=== PATIENT | male | born 1980 | race Caucasian/White ===

== ENCOUNTER → 2017-06-26 | Outpatient (REF) | payer OTHER ==
[2017-06-26 16:02] LABS: PLATELET COUNT, AUTOMATED 269 K/uL (150-450)
== END ==
PROVIDERS: ATTEND Physician Assistant Medical
DX: R11.0 Nausea (principal); R11.10 Vomiting, unspecified
CPT/HCPCS: 82040; 82247; 82310; 82374; 82435; 82565; 82947; 84075; 84132; 84155; 84295; 84450; 84460; 84520; 85025

== ENCOUNTER → 2017-07-15 | Outpatient (REF) | payer OTHER ==
[2017-07-15 16:34] LABS: PLATELET COUNT, AUTOMATED 302 K/uL (150-450)
== END ==
PROVIDERS: ATTEND Nurse Practitioner Family
DX: R11.10 Vomiting, unspecified (principal); R19.7 Diarrhea, unspecified
CPT/HCPCS: 82040; 82150; 82247; 82310; 82374; 82435; 82565; 82947; 83690; 84075; 84132; 84155; 84295; 84450; 84460; 84520; 85025

== ENCOUNTER → 2017-07-15 | Outpatient (CLI) | payer OTHER ==
[~2017-07-15] MED LIST: IOPAMIDOL 76% 75 ML INFUS BTL 75 ML ONE; NS 0.9% 20 ML SDV 40 ML ONE
--- NOTE | 2017-07-15 18:46 | RADIOLOGY IMAGING REPORT ---
FACILITY: PATIENT NAME: Jeffry Yuen : 1980 MR: [id number] V: [id number] EXAM DATE: ORDERING PHYSICIAN: MURTAZA VEGA TECHNOLOGIST: [facility] Patient: Jeffry Yuen : 1980 Visit/Account:[id number] Date of Sevice: 07/15/2017 ABDOMEN/PELVIS W/WO CONTRAST HISTORY: Nausea increased white count One of the following dose optimization techniques was utilized in the performance of this exam: Autom ated exposure control; adjustment of the mA and/or kV according to the patient's size; or use of an i terative reconstruction technique. Specific details can be referenced in the facility's radiology C T exam operational policy. EXAMINATION: CT abdomen/pelvis without IV contrast CT abdomen/ pelvis with IV contrast 7 5 cc of [id number] TECHNIQUE: CT scan of the abdomen and pelvis performed from the lung base through pubic symphysis wit hout contrast followed by scan from lung base through pubic symphysis after administration of IV cont rast. COMPARISON STUDIES: None FINDINGS: Liver/Biliary: Homogenous liver. No focal liver lesions. Gallbladder unremarkable Pancreas: Negative Spleen: Negative Adrenal glands: Negative Kidneys/Retroperitoneum: No renal stone or renal obstructive uropathy change. Normal nephrograms with no pyelonephritis or acute renal pathology readily evident Pelvic structures: Bladders well maintained with no acute bladder pathology. Prostate is mildly enlarged. Slight heterogeneity. Some of vesicles are somewhat plump. Bowel/peritoneum/mesenteries: No bowel pathology. No mass lesion or inflammation. Appendix normal. No evidence of appendicitis. 2 small appendicoliths seen within the mid body and distal aspect of the a ppendix. Vessels: Negative Musculoskeletal/body wall: Negative Lymph node assessment: Negative Lower chest: Negative IMPRESSION: 1. Negative CT scan of the abdomen/pelvis for acute pathology. 2. Prostate seminal vesicles mildly prominent. Evaluate for possible prostatitis. Report Dictated By: Benjamin Joseph MD at 07/15/2017 6:35 PM Report E-Signed By: Benjamin Joseph MD at 07/15/2017 6:42 PM WSN:[id number]
== END ==
LOC: CT 17:37
PROVIDERS: ATTEND Nurse Practitioner Family
DX: R10.9 Unspecified abdominal pain (principal)
CPT/HCPCS: 74178; J7050; Q9967

== ENCOUNTER → 2017-08-03 | Outpatient (REF) | payer OTHER ==
[2017-08-03 17:18] LABS: INR 1.01
[2017-08-03 17:27] LABS: PLATELET COUNT, AUTOMATED 310 K/uL (150-450)
== END ==
PROVIDERS: ATTEND Family Medicine
DX: D72.829 Elevated white blood cell count, unspecified (principal)
CPT/HCPCS: 82040; 82247; 82310; 82374; 82435; 82565; 82947; 83615; 84075; 84132; 84155; 84295; 84450; 84460; 84520; 84550; 85007; 85027; 85610; 85651; 86140